=== PATIENT | female | born 1985 | race Caucasian/White ===

== ENCOUNTER 2018-11-16 05:58 | Inpatient (IN) ==
[2018-11-16] MEDS ORDERED: LIDOCAINE HCL 50 ML VIAL PERI PRN (06:13)
[2018-11-16] MEDS ORDERED: NALBUPHINE HCL 10 MG/ML AMPUL IV PRN ×2 (06:13)
[2018-11-16] MEDS ORDERED: ONDANSETRON 4 MG TAB.RAPDIS PO PRN (06:13)
[2018-11-16] MEDS ORDERED: RINGER'S SOLUTION,LACTATED 1,000 ML IV ONE (06:13)
[2018-11-16] MEDS ORDERED: OXYTOCIN/DEXTROSE 5%-WATER 30 UNITS/500 ML BAG IV ONE ×2 (06:13→17:05)
[2018-11-16 06:42] LABS: Cocaine Ur Negative (NEGATIVE); Urine Barbiturate Negative (NEGATIVE); Urine Benzodiazepines Negative (NEGATIVE); Urine Opiates Negative (NEGATIVE); Urine PCP Negative (NEGATIVE); Urine THC Negative (NEGATIVE)
[2018-11-16] MEDS: RINGER'S SOLUTION,LACTATED 1,000 ML IV PRN ×2 (06:51→15:04)
[2018-11-16] MEDS ORDERED: PENICILLIN G POTASSIUM 5 MILLIONUNT in DEXTROSE 5 % IN WATER 100 ML IV ONE ×2 (07:00)
--- NOTE | 2018-11-16 09:19 | HP ---
Chief Complaint - Chief Complaint Date of Service: 11/16/18 Time of Service: 09:17 Chief Complaint: Labor induction History of Present Illness: The patient presents for an elective IOL. She reports contractions. She denies vb or lof. Fetus is active. Medical History (Updated 11/11/18 @ 15:46 by Ludivina Blum MD) Abnormal Pap smear of cervix Onset Date: ~2016 no procedures on cervix Depression Onset Date: Unknown Eczema Onset Date: Unknown Migraine Onset Date: Unknown no aura Ovarian cyst Onset Date: Unknown with mirena Tachycardia Onset Date: Unknown had evaluated, no conduction issues [place] teeth extracted Surgical History: Surgical History (Updated 04/07/18 @ 09:47 by Lesley Stewart, RN) H/O shoulder surgery Onset Date: ~2016 x3-right shoulder History of tonsillectomy and adenoidectomy Onset Date: ~2002 Family History: Family History (Updated 04/07/18 @ 09:48 by Lesley Stewart, RN) Mother Alive and well Father Alive and well COPD (chronic obstructive pulmonary disease) Grandmother Schizophrenia Social History: Preferred Language [place] Citizen Smoking Status Never smoker (Last Updated 11/11/18 @ 15:47 by Ludivina Blum MD) No Social History Section defined Review Of Systems (GEN) - Review of Systems Generalized/Overall Review: Present: No Symptoms Reported Misc: All systems neg except as marked Immunizations: IMMUNIZATION HX Immunizations Up to Date Yes History of Influenza Vaccine No Hx Pneumococcal Vaccination No Allergies/Adverse Reactions: Allergies Allergy/AdvReac Type Severity Reaction Status Date / Time lamotrigine Allergy Unknown Other Verified 11/16/18 06:12 Home Medications: HOME MEDICATIONS vitamins-iron fumarate 27 mg iron-folic acid 0.8 mg tablet 1 tab PO DAILY 04/07/18 [Last Taken Unknown] blood sugar diagnostic strips See Dose Instructions .ROUTE .MEDSUPPLY #100 ea 07/17/18 [Last Taken Unknown] blood-glucose meter kit See Dose Instructions .ROUTE .MEDSUPPLY #1 ea 07/17/18 [Last Taken Unknown] lancets 33 gauge See Dose Instructions .ROUTE .MEDSUPPLY #100 ea 07/17/18 [Last Taken Unknown] ferrous gluconate 324 mg (37.5 mg iron) tablet 324 mg PO DAILY tab 09/15/18 [Last Taken Unknown] Exam - Exam Vital Signs: Vital Signs - Last Taken Temp 36.7 C 11/16/18 06:20 Pulse 108 H 11/16/18 06:20 Resp 16 11/16/18 06:20 BP 109/81 11/16/18 06:20 Pulse Ox 100 11/16/18 06:20 Constitutional: Present: Alert, Oriented x3, Cooperative, No distress Respiratory: Present: lungs clear, normal breath sounds Cardiovascular/Chest: Present: regular rate, rhythm, no murmur Abdomen: Present: soft, nontender, nondistended /Rectal: Present: Other - 2/50/-2 AROM for clear fluid Extremity: Present: non-tender, no calf tenderness Skin Exam: Present: normal color, warm/dry, no cyanosis Appearance: Present: appropriate appearance Eye contact: Present: cooperative Thoughts: Present: normal thought pattern Diagnostic Studies: Laboratory Results Negative (NEGATIVE) 11/16/18 06:20 Negative (NEGATIVE) 11/16/18 06:20 Ur Phencyclidine Scrn Negative (NEGATIVE) 11/16/18 06:20 Urine Amphetamine Negative (NEGATIVE) 11/16/18 06:20 U Benzodiazepines Scrn Negative (NEGATIVE) 11/16/18 06:20 Negative (NEGATIVE) 11/16/18 06:20 Negative (NEGATIVE) 11/16/18 06:20 Blood Type O Positive 11/16/18 06:20 Antibody Screen Negative 11/16/18 06:20 Assessment/Plan - Narrative Narrative: 33 year old @ 39w 0d here for elective induction The patient is on pitocin AROM for clear fluid GBS positive: GBS prophylaxis Continue to titrate pitocin up
[2018-11-16] MEDS: PENICILLIN G POTASSIUM 2.5 MILLIONUNT in DEXTROSE 5 % IN WATER 100 ML IV SCH ×6 (10:26→19:24)
[2018-11-16] MEDS ORDERED: NALOXONE HCL 1 MG/1 ML SYRG IV PRN (11:16)
[2018-11-16] MEDS ORDERED: ONDANSETRON HCL/PF 2 MG/ML VIAL IV PRN (11:16)
[2018-11-16] MEDS ORDERED: BUPIVACAINE HCL/0.9 % NACL/PF 250 ML EP PRN (11:16)
[2018-11-16] MEDS ORDERED: fentaNYL CITRATE/PF 50 MCG/ML AMPUL IT SCH (11:30)
--- NOTE | 2018-11-16 14:14 | ANES ---
Anesthesia Pre Procedure Eval Vitals/Labs: Last Vital Signs Temp 36.7 C 11/16/18 06:20 Pulse 108 H 11/16/18 06:20 Resp 16 11/16/18 06:20 BP 109/81 11/16/18 06:20 Pulse Ox 100 11/16/18 06:20 HOME MEDICATIONS vitamins-iron fumarate 27 mg iron-folic acid 0.8 mg tablet 1 tab PO DAILY 04/07/18 [Last Taken Unknown] blood sugar diagnostic strips See Dose Instructions .ROUTE .MEDSUPPLY #100 ea 07/17/18 [Last Taken Unknown] blood-glucose meter kit See Dose Instructions .ROUTE .MEDSUPPLY #1 ea 07/17/18 [Last Taken Unknown] lancets 33 gauge See Dose Instructions .ROUTE .MEDSUPPLY #100 ea 07/17/18 [Last Taken Unknown] ferrous gluconate 324 mg (37.5 mg iron) tablet 324 mg PO DAILY tab 09/15/18 [Last Taken Unknown] Allergies/Adverse Reactions: Allergies Allergy/AdvReac Type Severity Reaction Status Date / Time lamotrigine Allergy Unknown Other Verified 11/16/18 06:12 - Planned Procedure Planned Procedure: ELECTIVE INDUCTION Medication List Reviewed:: Yes Allergies Verified: Yes Medical History (Updated 11/16/18 @ 09:19 by Ludivina Blum MD) Abnormal Pap smear of cervix Onset Date: ~2016 no procedures on cervix Depression Onset Date: Unknown Eczema Onset Date: Unknown Migraine Onset Date: Unknown no aura Ovarian cyst Onset Date: Unknown with mirena Tachycardia Onset Date: Unknown had evaluated, no conduction issues [place] teeth extracted Surgical History (Updated 11/16/18 @ 09:19 by Ludivina Blum MD) H/O shoulder surgery Onset Date: ~2016 x3-right shoulder History of tonsillectomy and adenoidectomy Onset Date: ~2002 Family History (Updated 04/07/18 @ 09:48 by Lesley Stewart RN) Mother Alive and well Father Alive and well COPD (chronic obstructive pulmonary disease) Grandmother Schizophrenia - Family Anesthesia History Family History:: no untoward family reactions to anesthesia - Airway/Neck/Teeth Within Normal Limits:: Yes Teeth Condition: intact Neck Exam: full range of motion - Respiratory Smoking Status: Never smoker Sleep Apnea currently treated: No Sleep Apnea by current assessment: No - Cardiovascular Tolerate Activity: Good - Anesthesia Assessment and Plan ASA Class: PS, II, E Anesthesia Type Plan: Epidural Planned difficult intubation/equipment available: No
--- NOTE | 2018-11-16 14:15 | ANES ---
Post Anesthesia Assessment - Vital Signs Vitals: Last Vital Signs Temp 36.7 C 11/16/18 06:20 Pulse 108 H 11/16/18 06:20 Resp 16 11/16/18 06:20 BP 109/81 11/16/18 06:20 Pulse Ox 100 11/16/18 06:20 Airway Patency: Normal - Mental Status Level Of Consciousness: Awake - Pain Level Pain Score: 2 - N/V Assessment Nausea/Vomiting Presence: None Dehydration:: No
--- NOTE | 2018-11-16 14:15 | ANES ---
Post Anesthesia Discharge - Transfer of Care Transfer of Care handoff given to nurse: Yes - Anesthesia Post Op Note Anesthesia Post Op Note: Care transferred to OB RN
--- NOTE | 2018-11-16 14:52 | ANES ---
Anesthesia Procedure Note Procedure Note: ANESTHESIA PROCEDURE NOTE Date of Procedure: 11/22/2018 Time of procedure: 1200. Performed by: Brandon Olvera CRNA Farm Equipment Service Technician: None. Preprocedure diagnosis: Active labor. Post procedure diagnosis: Same. Procedure: Insertion of labor epidural. Indications: The patient is a 33-year-old multigravida female in active labor requesting labor epidural for pain management. Findings: See below. Details of the procedure: The patient was placed in a sitting position. Back was prepped with DuraPrep. Patient was then draped in a sterile fashion. Lidocaine 1% was infiltrated to the skin and subcutaneous tissues at the level of the L3 4 interspace. The epidural space was identified using a 18-gauge Tuohy needle with [id number] technique. 20 mcg fentanyl was given intrathecally using a 27 ga. spinal needle. Epidural catheter was inserted without difficulty. Negative test dose was elicited using 3mL of 2% preservative-free lidocaine plus epinephrine 1 200,000. The epidural catheter was then taped and secured in place. EBL: Minimal. Fluids: N/A. Specimen: N/A. Post procedure condition: The patient tolerated the procedure well. No complications were noted. Thank you for this consultation. Stephenson CRNA
[2018-11-16] MEDS ORDERED: BENZOCAINE/MENTHOL 81 SPRAY CAN TP PRN (17:05)
[2018-11-16] MEDS ORDERED: oxyCODONE HCL/ACETAMINOPHEN 1 TAB TABLET PO PRN (17:05)
[2018-11-16] MEDS ORDERED: GLYCERIN/WITCH HAZEL LEAF 40 APPL BOX TP PRN (17:05)
[2018-11-16] MEDS ORDERED: BISACODYL 10 MG SUPP.RECT RC PRN (17:05)
[2018-11-16] MEDS ORDERED: SENNOSIDES 8.6 MG TABLET PO PRN (17:05)
[2018-11-16] MEDS ORDERED: HYDROCORTISONE 30 APPL TUBE TP PRN (17:05)
[2018-11-16] MEDS ORDERED: diphenhydrAMINE HCL 25 MG CAPSULE PO PRN (17:05)
--- NOTE | 2018-11-16 17:16 | OR ---
Operative Report - Dictated Report Narrative: Date of delivery: 11/16/2018 Time of delivery: 16:56 Gender: female APGARS: 8/9 weight: 3504 grams Procedure: Description of the procedure: The patient is a 33 year old @ 39w 0d who presented for an elective IOL. She was induced with pitocin and augmented by AROM. She progressed to complete dilation. She delivered a viable female in the direct OA position with slight rotation to QUIN over an intact perineum. The cord was clamped and cut on the mother's abdomen. Cord blood was collected. The placenta was delivered by expression and appeared intact. EBL: 200 mL Lacerations: none Complications: none Definition: * The number of deliveries resulting in a live the patient experienced prior to current hospitalization * The previous delivery of live twins or any live multiple gestation is considered one live event. *If primagravida or nulliparous is documented select zero for the number of previous live births. Live Births: 1
[2018-11-16] MEDS: IBUPROFEN 800 MG TABLET PO PRN ×2 (17:51→22:52)
[2018-11-16] MEDS: oxyCODONE HCL/ACETAMINOPHEN 1 TAB TABLET PO PRN ×2 (19:31→22:52)
[2018-11-16] MEDS: DOCUSATE SODIUM 100 MG CAPSULE PO SCH (20:50)
[2018-11-17] MEDS: oxyCODONE HCL/ACETAMINOPHEN 1 TAB TABLET PO PRN ×4 (04:28→22:34)
[2018-11-17] MEDS: IBUPROFEN 800 MG TABLET PO PRN ×3 (05:54→18:13)
[2018-11-17] MEDS: DOCUSATE SODIUM 100 MG CAPSULE PO SCH ×2 (08:57→22:41)
--- NOTE | 2018-11-17 09:43 | PN ---
Subjective - Date and Time Seen Date: 11/17/18 Time: 08:45 Subjective Narrative: Pt without complaints Objective Objective Narrative: See vital signs - Review of Systems Generalized/Overall Review: Reports: No Symptoms Reported Misc: All systems neg except as marked - Vitals Vitals: Last Vital Signs Temp 35.9 C L 11/17/18 06:43 Pulse 83 11/17/18 06:43 Resp 16 11/17/18 06:43 BP 143/88 H 11/17/18 06:43 Pulse Ox 99 11/17/18 06:43 - Exam Constitutional: Present: Alert, Oriented x3, Cooperative, No distress Abdomen: Present: soft, nontender, nondistended Extremity: Present: non-tender, no calf tenderness Skin Exam: Present: normal color, warm/dry, no cyanosis Appearance: Present: appropriate appearance Eye contact: Present: cooperative Thoughts: Present: normal thought pattern Cauti Physician Documentation - Urinary Catheter Management Urethral (Ingram) Urethral Indwelling: No Date of Insertion: 11/16/18 Time of Insertion: 12:53 Date of Removal: 11/16/18 Time of Removal: 16:44 Assessment/Plan Plan Narrative: PPD 1 s/p Doing well Discharge tomorrow
[2018-11-18] MEDS: IBUPROFEN 800 MG TABLET PO PRN (05:49)
[2018-11-18 06:18] VITALS: BP 124/74
[2018-11-18] MEDS: oxyCODONE HCL/ACETAMINOPHEN 1 TAB TABLET PO PRN (06:53)
--- NOTE | 2018-11-18 08:57 | PN ---
Subjective - Date and Time Seen Date: 11/18/18 Time: 08:56 Subjective Narrative: Pt without complaints Objective Objective Narrative: See vital signs - Review of Systems Generalized/Overall Review: Reports: No Symptoms Reported Misc: All systems neg except as marked - Vitals Vitals: Last Vital Signs Temp 36.2 C 11/18/18 05:45 Pulse 90 11/18/18 05:45 Resp 16 11/18/18 05:45 BP 124/74 11/18/18 05:45 Pulse Ox 99 11/18/18 05:45 - Exam Constitutional: Present: Alert, Oriented x3, Cooperative, No distress Abdomen: Present: soft, nontender, nondistended Extremity: Present: non-tender, no calf tenderness Skin Exam: Present: normal color, warm/dry, no cyanosis Appearance: Present: appropriate appearance Eye contact: Present: cooperative Thoughts: Present: normal thought pattern Cauti Physician Documentation - Urinary Catheter Management Urethral (Ingram) Urethral Indwelling: No Date of Insertion: 11/16/18 Time of Insertion: 12:53 Date of Removal: 11/16/18 Time of Removal: 16:44 Assessment/Plan Plan Narrative: PPD 2 s/p Doing well Discharge today
== END 2018-11-18 09:25 | disposition home or self-care (01) | DRG 806 ==
LOC: OB 05:58
PROVIDERS: ADMIT Obstetrics & Gynecology; ATTEND Obstetrics & Gynecology
CPT/HCPCS: 59025; 80307; 86850